=== PATIENT | male | born 1940 | race Caucasian/White ===

== ENCOUNTER → 2019-01-19 | Outpatient (CLI) | payer MEDICARE ==
--- NOTE | 2019-01-19 12:17 | REP ---
MRI LUMBAR SPINE WITHOUT CONTRAST: HISTORY: Lumbar spinal stenosis. Without neurogenic claudication. The patient reports pain going down the legs. TECHNIQUE: Sagittal and axial T1- and T2-weighted scans are acquired in the usual fashion with and without fat saturation. Sequences include spin echo, turbo spin echo, and STIR imaging sequences. MRI FINDINGS: The anterior wall of the abdominal aorta is excluded from the field of view, however, the right to left dimension of the abdominal aorta is seen to be widened at mid aortic level to a 3.4 cm dimension suggesting abdominal aortic aneurysm. Abdominal aortic sonography or CT study could be performed to assess the abdominal aorta. Lumbar vertebral body heights are preserved. 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 No fracture or collapse is seen. There is no evidence of spondylolysis but there is a grade 1 L4-5, 5 mm, spondylolisthesis. This is due to degenerative disc disease and advanced osteoarthritic facet disease. There is diffuse disc bulging. These factors combine to produce severe central canal stenosis at L4-5. Ligamentum flavum hypertrophy contributes to this as well. The mid line AP dimension of the thecal sac at L4-5 is 5.0 mm. CSF signal is effaced on T2-weighted scans from the thecal sac. There is moderate left-sided foraminal stenosis due to the spondylolisthesis and disc bulging and facet hypertrophy. On the right there is no significant neural foraminal narrowing. At L5-S1, there is mild facet hypertrophy. No other significant finding. At L3-4 there is degenerative disc disease with narrowing of the disc. There is diffuse disc bulging. Pedicles are developmentally short at L3-4 and there is severe central canal stenosis at this level as well. Facet hypertrophy and ligamentum flavum hypertrophy moderate in degree contribute to this. Midline AP dimension of the thecal sac at L3-4 is 4 mm. There is bilateral neural foraminal encroachment from facet hypertrophy and disc bulging at L3-4. These changes are actually more pronounced at L3-4 than they are at L4-5. L2-3, there is degenerative disc disease with diffuse disc bulging. Mild central canal stenosis is present. There is mild ligamentum flavum hypertrophy. There is minimal neural foraminal encroachment on the left due to facet hypertrophy. At L1-2, there is advanced degenerative disc disease with a 2 mm retrolisthesis and diffuse disc bulging encroaching on the ventral margin of the thecal sac. Right-sided ligamentum flavum and facet hypertrophy is seen. Mild central canal stenosis is present at L1-2. There is mild right-sided neural foraminal narrowing and L1-2. At T12-L1, there is no posterior disc protrusion. The conus medullaris is normal in position and appearance at T12-L1. There are large anterior osteophytes throughout the lumbar spine disc levels. IMPRESSION: Advanced degenerative spondylosis changes as noted above. The dominant findings are severe central canal stenosis at L3-4 and L4-5. There is a grade 1 spondylolisthesis at L4-5 on a degenerative basis. A mild L1-2 retrolisthesis is seen. Multilevel neural foraminal narrowing. Electronically Signed by De Puentes MD 01/19/2019 01:52 P
== END ==
LOC: M RAD 09:47
PROVIDERS: ATTEND Pain Medicine Interventional Pain Medicine
DX: M48.061 Spinal stenosis, lumbar region without neurogenic claudication (principal)